=== PATIENT | male | born 1950 | race Caucasian/White ===

== ENCOUNTER 2017-05-28 16:14 | Emergency (ER) | payer OTHER ==
[~2017-05-28] VITALS: Ht 175.3 cm; Wt 80.4 kg
[2017-05-28 16:15] VITALS: Ht 175.3 cm; Wt 80.4 kg
[2017-05-28 16:25] VITALS: O2SAT 97
--- NOTE | 2017-05-28 16:30 | EMERGENCY ROOM VISIT NOTE ---
History Report prepared by Joeyibbebo: Laura Potter Under the Supervision of: Dr. Gregory Albright M.D. First contact with patient: 16:19 Chief Complaint: CHEST PAIN Stated Complaint: CHEST PAIN, SOB, ATRO FLUTTER Nursing Triage Summary: Pt developed chest pressure and palpitations since 0200 this am. Was recently dx with atrial flutter, two weeks ago. Took eliquis and metroprolol this morning. History of Present Illness The patient is a 66 year old male who presents to the Emergency Room with complaints of persistent chest pain and palpitations since 0200 this morning. He reports he was recently diagnosed with atrial flutter 2 weeks ago, after experiencing similar symptoms for the past month. He rates his pain as a 2/10 in severity. He notes he took Eliquis and 50 mg Metoprolol this morning with no relief. He admits to some shortness of breath on exertion. He denies any previous history of cardiac issues before the atrial flutter diagnoses. The patient also denies any recent changes to medications, illnesses or changes with his exercise regime. Source of History: patient Onset: 0200 this morning Position: chest Timing: other (persistent) Modifying Factors (Relieving): other (Eliquis, Metoprolol) Associated Symptoms: + SOB Review of Systems See HPI for pertinent positives & negatives. A total of 10 systems reviewed and were otherwise negative. Past Medical & Surgical Medical Problems: (1) Atrial flutter Social History Smoking Status: Never Smoker Alcohol Use: occasionally Drug Use: none Marital Status: Housing Status: lives with family Occupation Status: employed Current/Historical Medications Scheduled Apixaban (Eliquis), 5 MG PO BID Metoprolol Succinate (Toprol Xl), 25 MG PO BID Allergies Coded Allergies: Cephalexin (Unverified Adverse Reaction, Intermediate, RASH, 05/28/17) Physical Exam Vital Signs Date Time Temp Pulse Resp B/P (MAP) Pulse Ox O2 Delivery O2 Flow Rate FiO2 05/28/17 17:57 36.8 87 21 116/77 97 05/28/17 17:31 116/77 05/28/17 17:29 87 21 97 Room Air 05/28/17 17:00 94/77 05/28/17 16:59 86 20 97 Room Air 05/28/17 16:55 36.8 87 20 100/70 97 Room Air 05/28/17 16:54 93 19 98 Room Air 05/28/17 16:52 100/70 05/28/17 16:50 106/69 05/28/17 16:49 96 24 97 Room Air 05/28/17 16:48 104 110/75 05/28/17 16:47 110/75 05/28/17 16:44 92 19 05/28/17 16:39 98 18 05/28/17 16:34 113 21 05/28/17 16:29 116 19 05/28/17 16:28 114 05/28/17 16:25 97 Room Air 05/28/17 16:15 36.8 153 20 113/77 97 Room Air Physical Exam GENERAL: Patient is well appearing and appears mildly anxious. EYES: No scleral icterus, unremarkable pupils. ENT: Mucous membranes moist, no nasal congestion. NECK: No masses appreciated, no meningismus, trachea is midline. RESPIRATORY: No dyspnea. Clear to auscultation and equal bilaterally. No wheeze , no rhonchi. CARDIOVASCULAR: Tachycardic and irregular heart rate, irregular heart beat. No murmurs, rubs, gallops appreciated. GASTROINTESTINAL: Abdomen soft, nontender, no peritonitis. Bowel sounds positive. No masses appreciated. BACK: No midline tenderness, no CVA tenderness EXTREMITIES: Normal motion all extremities, no cyanosis, no edema. NEUROLOGIC: Alert and oriented, no acute motor or sensory deficits, no focal weakness, cranial nerves grossly intact. SKIN: No rash, no jaundice, no diaphoresis. Medical Decision & Procedures ER Provider Diagnostic Interpretation: Radiology results and stated below per my review and radiologist interpretation: SINGLE VIEW CHEST CLINICAL HISTORY: Atypical chest pain. FINDINGS: An AP, portable, upright chest radiograph is obtained. No prior studies are available for comparison at the time of dictation. The examination is degraded by portable technique and apical lordotic positioning. The cardiomediastinal silhouette is unremarkable. The lungs and pleural spaces are clear. No pneumothorax is seen. The bony thorax is grossly intact. IMPRESSION: No acute cardiopulmonary abnormality. Electronically signed by: Antony Lord M.D. 05/28/2017 5:05 PM Laboratory Results 05/28/17 16:40 Red Blood Count 5.03, Mean Corpuscular Volume 90.7, Mean Corpuscular Hemoglobin 31.6, Mean Corpuscular Hemoglobin Concent 34.9, Mean Platelet Volume 11.3, Neutrophils (%) (Auto) 60.9, Lymphocytes (%) (Auto) 28.5, Monocytes (%) (Auto) 7.7, Eosinophils (%) (Auto) 2.2, Basophils (%) (Auto) 0.5, Neutrophils # (Auto) 5.08, Lymphocytes # (Auto) 2.37, Monocytes # (Auto) 0.64, Eosinophils # (Auto) 0.18, Basophils # (Auto) 0.04 05/28/17 16:40 Test 05/28/17 16:40 White Blood Count 8.33 K/uL (4.8-10.8) Red Blood Count 5.03 M/uL (4.7-6.1) Hemoglobin 15.9 g/dL (14.0-18.0) Hematocrit 45.6 % (42-52) Mean Corpuscular Volume 90.7 fL (80-100) Mean Corpuscular Hemoglobin 31.6 pg (25-34) Mean Corpuscular Hemoglobin Concent 34.9 g/dl (32-36) Platelet Count 242 K/uL (130-400) Mean Platelet Volume 11.3 fL (7.4-10.4) Neutrophils (%) (Auto) 60.9 % Lymphocytes (%) (Auto) 28.5 % Monocytes (%) (Auto) 7.7 % Eosinophils (%) (Auto) 2.2 % Basophils (%) (Auto) 0.5 % Neutrophils # (Auto) 5.08 K/uL (1.4-6.5) Lymphocytes # (Auto) 2.37 K/uL (1.2-3.4) Monocytes # (Auto) 0.64 K/uL (0.11-0.59) Eosinophils # (Auto) 0.18 K/uL (0-0.5) Basophils # (Auto) 0.04 K/uL (0-0.2) RDW Standard Deviation 43.6 fL (36.4-46.3) RDW Coefficient of Variation 13.3 % (11.5-14.5) Immature Granulocyte % (Auto) 0.2 % Immature Granulocyte # (Auto) 0.02 K/uL (0.00-0.02) Anion Gap 5.0 mmol/L (3-11) Est Creatinine Clear Calc Drug Dose 56.8 ml/min Estimated GFR () 67.1 Estimated GFR (Non- 57.9 BUN/Creatinine Ratio 20.8 (10-20) Calcium Level 8.4 mg/dl (8.5-10.1) Magnesium Level 2.0 mg/dl (1.8-2.4) Troponin I < 0.015 ng/ml (0-0.045) Thyroid Stimulating Hormone (TSH) 1.700 uIu/ml (0.300-4.500) Laboratory results as reviewed by me. Medications Administered Medications (Trade) Dose Ordered Sig/Thalia Route Start Time Stop Time Status Last Admin Dose Admin Sodium Chloride 1,000 ml @ 999 mls/hr Q1H1M STAT IV 05/28/17 16:32 05/28/17 17:32 DC 05/28/17 16:47 999 MLS/HR Metoprolol Tartrate (Lopressor Iv) 5 mg NOW STAT IV 05/28/17 16:32 05/28/17 16:34 DC 05/28/17 16:48 5 MG ECG Per My Interpretation Indication: palpitations Rate (beats per minute): 148 Rhythm: atrial flutter Findings: no acute ischemic change, other (non-sepcific lateral ST depressions) ED Course 1621: The patient was evaluated in room B4. A complete history and physical exam was performed. 1632: Metoprolol 5 mg IV, NSS 1000 ml @ 999 mls/hr IV. 1733: I reassessed the patient. He is feeling much better. His HR was in the 80s while I was speaking with him but he states he has not further symptoms. 1745: I reevaluated the patient. He is feeling much better and his heart rate has remained in the 70's and 80's. He states he has no interest in remaining in the hospital. He will follow up with his Hopper Attendant. Medical Decision Differential: NSR, SVT, PACs, PVCs, Cardiac Dysrhythmia, Endocrine Dysfunction, Electrolyte/Metabolic Abnormality, Pulmonary Embolism, Infectious, GI, amongst other pathologies entertained. 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 Notes 2 hours of rapid HR associated with vague chest discomfort and fatigue/SOB with exertion. EKG with Aflutter RVR mild lateral ST depressions consistent with rate. Looks well and BP OK. Took 50mg PO Metoprolol prior to arrival. Sounds like this has been PAF for last 2 weeks with periodic RVR which breaks on own. Already with EF known 40-45% and on Eliquis and Metoprolol 25mg BID. On eval in Aflutter RVR though with deep breaths broke to Afib RVR in 110-130s. No stroke like symptoms. No lab work up nor CXR thus far thus patient agreeable to them. IV obtained, given 1L NSS and 5mg IV lopressor. HR maintained in 80s-90s over next hour or so and patient without further symptoms. He is well rate controlled currently and in no distress. Labs look good without evidence this being ACS. We discussed increasing Metoprolol to 50mg BID and monitoring BPs closely. Continue Eliquis. Symptoms not consistent with PE and I do not believe this represents ACS. Does not appear to be valvular AFib in nature. TSH looks good and doesn' t seem to be endocrine related. No reason to suspect infectious cause. He has close follow up with Cards and is aware he can return at any time if worsening or other concerns. Stable and looks well at discharge happy with plan of care. Medication Reconcilliation Current Medication List: was personally reviewed by me Blood Pressure Screening Patient's blood pressure: Normal blood pressure Blood pressure disposition: Did not require urgent referral Impression Primary Impression: Atrial flutter with rapid ventricular response Additional Impression: Paroxysmal atrial fibrillation with RVR Scribe Attestation The scribe's documentation has been prepared under my direction and personally reviewed by me in its entirety. I confirm that the note above accurately reflects all work, treatment, procedures, and medical decision making performed by me. Departure Information Dispostion Home / Self-Care Patient Instructions Atrial Fibrillation [place], My [facility] Problem Qualifiers
[2017-05-28] MEDS ORDERED: SODIUM CHLORIDE 0.9% 1000ML 1,000 ML IV STA (16:32)
[2017-05-28] MEDS ORDERED: METOPROLOL TARTRATE 1 MG/ML VIAL IV STA (16:32)
[2017-05-28 17:01] LABS: BASO % 0.5 %; BASO ABS # 0.04 K/uL (0-0.2); EOS % 2.2 %; EOS ABS # 0.18 K/uL (0-0.5); HEMATOCRIT 45.6 % (42-52); HEMOGLOBIN 15.9 g/dL (14.0-18.0); IG# 0.02 K/uL (0.00-0.02); LYMPH % 28.5 %; LYMPH ABS # 2.37 K/uL (1.2-3.4); MEAN CELL VOLUME 90.7 fL (80-100); MEAN CORPUSCULAR HEMOGLOBIN 31.6 pg (25-34); MEAN CORPUSCULAR HGB CONC 34.9 g/dl (32-36); MEAN PLATELET VOLUME 11.3 fL (7.4-10.4); MONO % 7.7 %; MONO ABS # 0.64 K/uL (0.11-0.59); NEUT % 60.9 %; NEUT ABS # 5.08 K/uL (1.4-6.5); PLATELET COUNT 242 K/uL (130-400); RED CELL DISTRIBUTION WIDTH CV 13.3 % (11.5-14.5); RED CELL DISTRIBUTION WIDTH SD 43.6 fL (36.4-46.3); WHITE BLOOD COUNT 8.33 K/uL (4.8-10.8)
[2017-05-28] MEDS ORDERED: APIX1TAB3 PO (17:01)
[2017-05-28] MEDS ORDERED: METO25TA4 PO (17:01)
--- NOTE | 2017-05-28 17:06 | DIAGNOSTIC IMAGING REPORT ---
SINGLE VIEW CHEST CLINICAL HISTORY: Atypical chest pain. FINDINGS: An AP, portable, upright chest radiograph is obtained. No prior studies are available for comparison at the time of dictation. The examination is degraded by portable technique and apical lordotic positioning. The cardiomediastinal silhouette is unremarkable. The lungs and pleural spaces are clear. No pneumothorax is seen. The bony thorax is grossly intact. IMPRESSION: No acute cardiopulmonary abnormality. Electronically signed by: Antony Lord M.D. 05/28/2017 5:05 PM Dictated Date/Time: 05/28/2017 5:05 PM
[2017-05-28 17:19] LABS: BLOOD UREA NITROGEN 27 mg/dl (7-18); CALCIUM 8.4 mg/dl (8.5-10.1); CARBON DIOXIDE 28 mmol/L (21-32); CREATININE 1.28 mg/dl (0.60-1.40); GLUCOSE 110 mg/dl (70-99); POTASSIUM 4.2 mmol/L (3.5-5.1); SODIUM 142 mmol/L (136-145)
[2017-05-28 17:57] VITALS: BP 116/77; PULSE 87; TEMP 36.8; O2SAT 97
== END 2017-05-28 18:00 | disposition home or self-care (01) ==
LOC: C.EDB 16:15
DX: I48.92 Unspecified atrial flutter (principal); I48.0 Paroxysmal atrial fibrillation; Z79.01 Long term (current) use of anticoagulants; Z88.1 Allergy status to other antibiotic agents